=== PATIENT | female | born 1960 | race Caucasian/White ===

== ENCOUNTER → 2023-12-28 18:32 | Outpatient (REF) | payer BC, SELFPAY | LOC: WDC 18:32 | PROVIDERS: ATTENDING PHYSICIAN Internal Medicine | DX: Z12.31 Encounter for screening mammogram for malignant neoplasm of breast (principal) | CPT/HCPCS: 77063; 77067 ==

== ENCOUNTER → 2024-07-26 06:26 | Day surgery (SDC) | payer BC, SELFPAY | LOC: GI 06:26 | PROVIDERS: ATTENDING PHYSICIAN Internal Medicine Gastroenterology | DX: Z12.11 Encounter for screening for malignant neoplasm of colon (principal); D12.2 Benign neoplasm of ascending colon; K57.30 Diverticulosis of large intestine without perforation or abscess without bleeding; K64.8 Other hemorrhoids; Z86.0100 Personal history of colon polyps, unspecified | CPT/HCPCS: 45380; 88305 ==

== ENCOUNTER → 2024-10-04 14:30 | Outpatient (REF) | payer OTHER, SELFPAY | LOC: RAD 14:30 | PROVIDERS: ATTENDING PHYSICIAN Internal Medicine | DX: M54.6 Pain in thoracic spine (principal) | CPT/HCPCS: 72072 ==

== ENCOUNTER → 2024-11-28 15:32 | Outpatient (REF) | payer OTHER, SELFPAY | LOC: HWRCS 15:32 | PROVIDERS: ATTENDING PHYSICIAN Nuclear Medicine Nuclear Cardiology; FAMILY PHYSICIAN Internal Medicine | DX: R93.1 Abnormal findings on diagnostic imaging of heart and coronary circulation (principal); E78.2 Mixed hyperlipidemia; R06.02 Shortness of breath | CPT/HCPCS: 93306 ==

== ENCOUNTER 2024-12-12 17:04 | Outpatient (RCR) | payer OTHER, SELFPAY | END 2024-12-12 23:59 | disposition home or self-care (01) | LOC: RPT 17:04 | PROVIDERS: ATTENDING PHYSICIAN Internal Medicine | DX: M54.6 Pain in thoracic spine (principal); Z73.6 Limitation of activities due to disability; R26.2 Difficulty in walking, not elsewhere classified; M62.81 Muscle weakness (generalized); R20.2 Paresthesia of skin; R26.89 Other abnormalities of gait and mobility; M54.50 Low back pain, unspecified; R10.30 Lower abdominal pain, unspecified; M25.552 Pain in left hip; M25.551 Pain in right hip | CPT/HCPCS: 97110; 97112; 97140; 97161 ==

== ENCOUNTER → 2024-12-28 17:58 | Outpatient (REF) | payer OTHER, SELFPAY | LOC: WDC 17:58 | PROVIDERS: ATTENDING PHYSICIAN Obstetrics & Gynecology Gynecology; FAMILY PHYSICIAN Internal Medicine | DX: Z12.31 Encounter for screening mammogram for malignant neoplasm of breast (principal) | CPT/HCPCS: 77063; 77067 ==

== ENCOUNTER 2025-01-04 15:55 | Outpatient (RCR) | payer OTHER, SELFPAY | END 2025-01-04 23:59 | disposition home or self-care (01) | LOC: RPT 15:55 | PROVIDERS: ATTENDING PHYSICIAN Internal Medicine | DX: M54.6 Pain in thoracic spine (principal); Z73.6 Limitation of activities due to disability; R26.2 Difficulty in walking, not elsewhere classified; M62.81 Muscle weakness (generalized); R20.2 Paresthesia of skin; R26.89 Other abnormalities of gait and mobility; M54.50 Low back pain, unspecified; R10.30 Lower abdominal pain, unspecified | CPT/HCPCS: 97110; 97112 ==

== ENCOUNTER 2025-01-29 14:04 | Outpatient (RCR) | payer OTHER, SELFPAY | END 2025-01-29 23:59 | disposition home or self-care (01) | LOC: RPT 14:04 | PROVIDERS: ATTENDING PHYSICIAN Internal Medicine | DX: M54.6 Pain in thoracic spine (principal); Z73.6 Limitation of activities due to disability; R26.2 Difficulty in walking, not elsewhere classified; M62.81 Muscle weakness (generalized); R20.2 Paresthesia of skin; R26.89 Other abnormalities of gait and mobility; M54.50 Low back pain, unspecified; R10.30 Lower abdominal pain, unspecified | CPT/HCPCS: 97110; 97112; 97140 ==

== ENCOUNTER → 2025-02-08 10:41 | Outpatient (REF) | payer OTHER, SELFPAY | LOC: RAD 10:41 | PROVIDERS: ATTENDING PHYSICIAN Internal Medicine | DX: Z78.0 Asymptomatic menopausal state (principal) | CPT/HCPCS: 77080 ==

== ENCOUNTER 2025-02-28 14:44 | Outpatient (RCR) | payer OTHER, SELFPAY | END 2025-03-08 07:54 | disposition home or self-care (01) | LOC: RPT 14:44 | PROVIDERS: ATTENDING PHYSICIAN Internal Medicine | DX: M54.6 Pain in thoracic spine (principal); Z73.6 Limitation of activities due to disability; R26.2 Difficulty in walking, not elsewhere classified; M25.552 Pain in left hip; M62.81 Muscle weakness (generalized); M25.551 Pain in right hip; R26.89 Other abnormalities of gait and mobility; R20.2 Paresthesia of skin; M54.50 Low back pain, unspecified; R10.30 Lower abdominal pain, unspecified | CPT/HCPCS: 97110 ==

== ENCOUNTER → 2025-05-02 16:24 | Outpatient (REF) | payer OTHER, SELFPAY | LOC: RAD 16:24 | PROVIDERS: ATTENDING PHYSICIAN Internal Medicine | DX: R05.1 Acute cough (principal) | CPT/HCPCS: 71046 ==

== ENCOUNTER 2025-06-05 06:19 | Day surgery (SDC) | payer OTHER, SELFPAY | END 2025-06-05 11:12 | disposition home or self-care (01) | LOC: GI 06:19 | PROVIDERS: ATTENDING PHYSICIAN Internal Medicine Gastroenterology | DX: K29.70 Gastritis, unspecified, without bleeding (principal); K44.9 Diaphragmatic hernia without obstruction or gangrene; K31.89 Other diseases of stomach and duodenum; R12 Heartburn; Z87.11 Personal history of peptic ulcer disease | CPT/HCPCS: 43239; 88305; 88342 ==

== ENCOUNTER 2025-08-07 06:29 | Outpatient (RCR) | payer OTHER, SELFPAY | END 2025-08-07 23:59 | disposition home or self-care (01) | LOC: RPT 06:29 | PROVIDERS: ATTENDING PHYSICIAN Internal Medicine | DX: R42 Dizziness and giddiness (principal); Z73.6 Limitation of activities due to disability | CPT/HCPCS: 97112; 97161 ==